=== PATIENT | male | born 1960 | race Caucasian/White ===

== ENCOUNTER → 2023-07-07 15:23 | Outpatient (REF) | payer BC, SELFPAY | LOC: RAD 15:23 | PROVIDERS: ATTENDING PHYSICIAN Physician Assistant | DX: E04.1 Nontoxic single thyroid nodule (principal) | CPT/HCPCS: 76536 ==

== ENCOUNTER → 2023-07-15 12:46 | Outpatient (REF) | payer BC, SELFPAY ==
[2023-07-15 13:00] VITALS: BP 171/99; BP_SYST 69
[2023-07-15 13:06] VITALS: BP 150/91; BP_SYST 70
== END ==
LOC: RADI 12:46
PROVIDERS: ATTENDING PHYSICIAN Physician Assistant
DX: E04.1 Nontoxic single thyroid nodule (principal)
CPT/HCPCS: 88173; 10005

== ENCOUNTER → 2023-09-28 15:00 | Outpatient (REF) | payer BC, SELFPAY | LOC: RCS 15:00 | PROVIDERS: ATTENDING PHYSICIAN Internal Medicine Cardiovascular Disease; FAMILY PHYSICIAN Physician Assistant | DX: I47.20 Ventricular tachycardia, unspecified (principal) | CPT/HCPCS: 93306 ==